=== PATIENT | female | born 1960 | race American Indian/Alaskan Native ===

== ENCOUNTER 2016-11-09 11:19 | Emergency (ER) | payer OTHER ==
[2016-11-09 11:25] VITALS: BMI 36.1
[2016-11-09] MEDS ORDERED: Sodium Chloride 0.9% 1,000 ML IV STA (11:31)
--- NOTE | 2016-11-09 11:35 | ED PDOC ---
Arrival/HPI - General Time Seen by Provider: 11/09/16 11:28 Historian: Patient - History of Present Illness Narrative History of Present Illness (Text): 11/09/16 11:23 Felicita Dorado is a 56 year old female, whose past medical history includes hypothyroidism and gastroparesis, who presents to the emergency department complaining of epigastric pain with associated nausea, vomiting, and diarrhea since midnight last night. Patient states that she also feels dizzy and cramping in her abdominal area. Patient notes that has never had these symptoms before. Patient says that she ate fish a few hours before her symptoms began. Patient denies any hematochezia, fever, cough, urinary output changes, or any other complaints at this time. PMD: Dr. Joshi Time/Duration: 24 hours Symptom Onset: Gradual Symptom Course: Worsening Severity Level: Moderate Activities at Onset: Rest Context: Home Past Medical History - Provider Review Nursing Documentation Reviewed: Yes - Infectious Disease Hx of Infectious Diseases: None - Tetanus Immunization Tetanus Immunization: Unknown - Cardiac Hx Hypertension: Yes - Neurological Hx Paralysis: No - Endocrine/Metabolic Hx Hypothyroidism: Yes - Hematological/Oncological Hx Blood Transfusions: No Hx Blood Transfusion Reaction: No - Musculoskeletal/Rheumatological Hx Musculoskeletal Disorders: No - Gastrointestinal Hx Gastroesophageal Reflux: Yes - Psychiatric Hx Substance Use: No - Surgical History Hx Section: Yes - Anesthesia Hx Anesthesia: Yes Hx Anesthesia Reactions: No - Suicidal Assessment Feels Threatened In Home Enviroment: No Family/Social History - Physician Review Nursing Documentation Reviewed: Yes Family/Social History: No Known Family HX Smoking Status: Light Smoker < 10 Cigarettes Daily Hx Alcohol Use: Yes Hx Substance Use: No Hx Substance Use Treatment: No Allergies/Home Meds Allergies/Adverse Reactions: Allergies No Known Allergies Allergy (Verified 12/08/15 13:13) Home Medications: Home Meds Medication Instructions Recorded Confirmed Levothyroxine [Synthroid] 0.112 mg PO DAILY 06/26/15 11/09/16 Dexlansoprazole [Dexilant] 60 mg PO DAILY 11/09/16 11/09/16 Review of Systems - Physician Review All systems were reviewed & negative as marked: Yes - Review of Systems Constitutional: absent: Fevers, Night Sweats Eyes: absent: Vision Changes ENT: absent: Hearing Changes Respiratory: absent: SOB, Cough Cardiovascular: absent: Chest Pain Gastrointestinal: Abdominal Pain, Diarrhea, Nausea, Vomiting. absent: Hematochezia Genitourinary Female: absent: Urine Output Changes Musculoskeletal: absent: Back Pain, Neck Pain Skin: absent: Rash Neurological: Dizziness Endocrine: absent: Diaphoresis Physical Exam Vital Signs Reviewed: Yes Vital Signs Temp Pulse Resp BP Pulse Ox 11/09/16 14:36 98.2 F 67 18 124/72 98 11/09/16 11:32 98 F 60 18 117/70 99 Temperature: Afebrile Blood Pressure: Normal Pulse: Regular Respiratory Rate: Normal Appearance: Positive for: Well-Appearing, Non-Toxic, Comfortable Pain Distress: None Mental Status: Positive for: Alert and Oriented X 3 - Systems Exam Head: Present: Atraumatic, Normocephalic Pupils: Present: PERRL Extroacular Muscles: Present: EOMI Conjunctiva: Present: Normal Mouth: Present: Moist Mucous Membranes Neck: Present: Normal Range of Motion Respiratory/Chest: Present: Clear to Auscultation, Good Air Exchange. No: Respiratory Distress, Accessory Muscle Use Cardiovascular: Present: Regular Rate and Rhythm, Normal S1, S2. No: Murmurs Abdomen: Present: Tenderness (Epigastric Tenderness) Back: Present: Normal Inspection Upper Extremity: Present: Normal Inspection. No: Cyanosis, Edema Lower Extremity: Present: Normal Inspection. No: Edema Neurological: Present: GCS=15, CN II-XII Intact, Speech Normal Skin: Present: Warm, Dry, Normal Color. No: Rashes Psychiatric: Present: Alert, Oriented x 3, Normal Insight, Normal Concentration Medical Decision Making ED Course and Treatment: EKG: Ordered, reviewed, and independently interpreted the EKG. Rate : 65 BPM Rhythm : NSR Interpretation : No ST-segment elevations or depressions, no T-wave inversions, normal intervals. Comparison : No previous EKG for comparison. 11/09/16 14:28 On reevaluation, Patient feels much better and requests to be discharged - Lab Interpretations Lab Results: 11/09/16 11:47 11/09/16 11:47 Lab Results 11/09/16 13:03: Urine Color Yellow, Urine Appearance Clear, Urine pH 7.0, Ur Specific [place] 1.015, Urine Protein Trace H, Urine Glucose (UA) Negative, Urine Ketones Negative, Urine Blood Small H, Urine Nitrate Negative, Urine Bilirubin Negative, Urine Urobilinogen 0.2, Ur Leukocyte Esterase Negative, Urine RBC 1 - 3, Urine WBC 0 - 2, Ur Epithelial Cells 0 - 2, Urine Bacteria Trace 11/09/16 11:47: WBC 8.6 D, RBC 4.42, Hgb 13.2, Hct 39.3, MCV 88.9, MCH 29.9, MCHC 33.6, RDW 14.7 H, Plt Count 334, MPV 9.7, Gran % 90.1 H, Lymph % (Auto) 6.0 L, [place] % (Auto) 3.7, Eos % (Auto) 0.1 L, Baso % (Auto) 0.1, Gran # 7.75 H, Lymph # 0.5 L, [place] # 0.3, Eos # 0.0, Baso # 0.01, Sodium 145, Potassium 3.8, Chloride 108 H, Carbon Dioxide 25, Anion Gap 16, BUN 12, Creatinine 0.5, Est GFR ( Amer) > 60, Est GFR (Non-Af Amer) > 60, Random Glucose 106, Calcium 9.6, Total Bilirubin 0.5, AST 30, ALT 26, Alkaline Phosphatase 79, Total Protein 9.0 H, Albumin 4.5, Globulin 4.6, Albumin/Globulin Ratio 1.0 L, Lipase 33 - Medication Orders Current Medication Orders: Discontinued Medications Sodium Chloride (Sodium Chloride 0.9%) 1,000 mls @ 999 mls/hr IV .Q1H1M STA Stop: 11/09/16 12:31 Last Admin: 11/09/16 11:40 Dose: 999 MLS/HR eMAR Start Stop Document 11/09/16 11:40 SRE (Rec: 11/09/16 11:50 [id number] Intravenous Solution Start Date 11/09/16 Start Time 11:40 End Date 11/09/16 End time 12:40 Total Infusion Time 60 Ketorolac Tromethamine (Toradol) 10 mg IVP STAT STA Stop: 11/09/16 11:32 Last Admin: 11/09/16 11:49 Dose: 10 MG IVP Administration Document 11/09/16 11:49 SRE (Rec: 11/09/16 11:49 [id number] Charges for Administration # of IVP Administrations 1 Ondansetron HCl (Zofran Inj) 4 mg IVP ONCE ONE Stop: 11/09/16 11:32 Last Admin: 11/09/16 11:45 Dose: 4 MG IVP Administration Document 11/09/16 11:45 SRE (Rec: 11/09/16 11:49 SRE [facility] [place]-[id number]) Charges for Administration # of IVP Administrations 1 - Scribe Statement The provider has reviewed the documentation as recorded by the Scribe Aisha Moyer Provider Scribe Attestation: All medical record entries made by the Scribe were at my direction and personally dictated by me. I have reviewed the chart and agree that the record accurately reflects my personal performance of the history, physical exam, medical decision making, and the department course for this patient. I have also personally directed, reviewed, and agree with the discharge instructions and disposition. Disposition/Present on Arrival - Present on Arrival Any Indicators Present on Arrival: No History of DVT/PE: No History of Uncontrolled Diabetes: No Urinary Catheter: No History of Decub. Ulcer: No History Surgical Site Infection Following: None - Disposition Have Diagnosis and Disposition been Completed?: Yes Diagnosis: Gastroenteritis Disposition: HOME/ ROUTINE Disposition Time: 14:28 Condition: IMPROVED Discharge Instructions (ExitCare): Gastroenteritis (ED) Additional Instructions: Please follow up with your doctor. Return to the ER for any worsening symptoms or for any other concerns. Prescriptions: Sucralfate [Carafate] 1 gm PO TID #6 dose Ondansetron ODT [Zofran ODT] 4 mg PO Q4H PRN #10 odt PRN Reason: Nausea/Vomiting Referrals: Sammy Joshi MD [Primary Care Provider] - Follow up with primary
[2016-11-09 11:36] VITALS: RESP 18
[2016-11-09 11:48] LABS: ADD MANUAL DIFF? NO
[2016-11-09 12:02] LABS: ALKALINE PHOSPHATASE 79 U/L (38-133); ALT/SGPT 26 U/L (7-56); AST/SGOT 30 U/L (15-39); BILIRUBIN,TOTAL 0.5 mg/dL (0.2-1.3); BLOOD UREA NITROGEN 12 mg/dL (7-21); CALCIUM 9.6 mg/dL (8.4-10.5); CARBON DIOXIDE 25 mmol/L (21-33); CHLORIDE 108 mmol/L (98-107); GFR AFRICAN-AMERICAN > 60; GLUCOSE,RANDOM 106 mg/dL (70-110); LIPASE 33 U/L (23-300); POTASSIUM 3.8 mmol/L (3.6-5.0); SODIUM 145 mmol/L (132-148)
[2016-11-09 12:10] LABS: BASO # 0.01 K/mm3 (0.0-2.0); BASO % 0.1 % (0.0-3.0); EOS % 0.1 % (1.5-5.0); GRAN # 7.75 (1.4-6.5); GRAN % 90.1 % (50.0-68.0); HEMATOCRIT 39.3 % (36.0-48.0); LYMPH # 0.5 (1.2-3.4); MEAN CELL VOLUME 88.9 fL (80.0-105.0); MEAN CORPUSCULAR HEMOGLOBIN 29.9 pg (25.0-35.0); MEAN CORPUSCULAR HGB CONC 33.6 g/dl (31.0-37.0); MEAN PLATELET VOLUME 9.7 fl (7.0-11.0); MONO # 0.3 (0.1-0.6); MONO % 3.7 % (1.0-6.0); PLATELET COUNT 334 10^3/uL (120.0-450.0); RED CELL DISTRIBUTION WIDTH 14.7 % (11.5-14.5); WHITE BLOOD COUNT 8.6 10^3/ul (4.5-11.0)
[2016-11-09 13:10] LABS: URINE BILIRUBIN NEGATIVE (NEGATIVE); URINE BLOOD SMALL (NEGATIVE); URINE GLUCOSE (UA) NEGATIVE (NEGATIVE); URINE KETONE NEGATIVE (NEGATIVE); URINE LEUKOCYTE ESTERASE NEGATIVE Leu/uL (NEGATIVE); URINE PROTEIN TRACE mg/dL (<30 mg/dL); URINE UROBILINOGEN 0.2 E.U./dL (<1 E.U./dL)
[2016-11-09 13:14] LABS: URINE APPEARANCE CLEAR (CLEAR); URINE COLOR YELLOW (YELLOW)
[2016-11-09 13:24] LABS: URINE BACTERIA TRACE (NEG); URINE EPITHELIAL CELLS 0 - 2 /hpf (0-5); URINE WBC 0 - 2 /hpf (0-6)
[2016-11-09 14:37] VITALS: BP 124/72; PULSE 67; TEMP 98.2; O2SAT 98
--- NOTE | 2016-11-10 09:36 | CARD ---
APPROVED REPORT EKG Measurement Heart [id number] <Conclusion> Normal sinus rhythm Artifact 2,3,F PWNL No change
== END 2016-11-09 14:38 | disposition home or self-care (01) ==
LOC: ED 11:19
DX: K52.9 Noninfective gastroenteritis and colitis, unspecified (principal)
CPT/HCPCS: 80053; 81001; 83690; 85025; 93005; 96361; 96374; 96375; 99284; J1885; J2405; J7040

== ENCOUNTER 2017-02-16 13:06 | Emergency (ER) | payer OTHER ==
[2017-02-16 13:06] VITALS: BMI 36.1
[2017-02-16 13:18] VITALS: RESP 18; TEMP 98.3
[2017-02-16] MEDS ORDERED: Sodium Chloride 0.9% 1,000 ML IV STA (13:31)
--- NOTE | 2017-02-16 13:34 | ED PDOC ---
Arrival/HPI - General Chief Complaint: Dizziness/Lightheaded Time Seen by Provider: 02/16/17 13:21 Historian: Patient - History of Present Illness Narrative History of Present Illness (Text): 02/16/17 13:35 A 56 year old female, whose past medical history includes vertigo, brought in by EMS complaining of 3-4 days history of dizziness. Patient feels that dizziness is worse with movement or turning head. Patient reports feeling congested over the past several days. Reports nausea associated with dizziness but denies any other complaints at this time. Denies headache. Denies pain with eye movements. Denies facial swelling. No chest pain with exertion. She reports some epigastric pain when she burps. Denies calf pain or swelling. PMD: Dr. Josih Time/Duration: < week Symptom Onset: Sudden Symptom Course: Unchanged Activities at Onset: Rest Context: Home Past Medical History - Provider Review Nursing Documentation Reviewed: Yes - Infectious Disease Hx of Infectious Diseases: None - Tetanus Immunization Tetanus Immunization: Unknown - Reproductive Menopause: Yes - Cardiac Hx Hypertension: Yes - Neurological Hx Dizziness: Yes - Endocrine/Metabolic Hx Hypothyroidism: Yes - Hematological/Oncological Hx Blood Transfusions: No Hx Blood Transfusion Reaction: No - Musculoskeletal/Rheumatological Hx Musculoskeletal Disorders: No - Gastrointestinal Hx Gastroesophageal Reflux: Yes - Psychiatric Hx Emotional Abuse: No Hx Physical Abuse: No Hx Substance Use: No - Surgical History Hx Section: Yes - Anesthesia Hx Anesthesia: Yes Hx Anesthesia Reactions: No Hx Malignant Hyperthermia: No - Suicidal Assessment Feels Threatened In Home Enviroment: No Family/Social History - Physician Review Nursing Documentation Reviewed: Yes Family/Social History: No Known Family HX Smoking Status: Light Smoker < 10 Cigarettes Daily Hx Alcohol Use: Yes Frequency of alcohol use: Socially Hx Substance Use: No Hx Substance Use Treatment: No Allergies/Home Meds Allergies/Adverse Reactions: Allergies No Known Allergies Allergy (Verified 02/16/17 13:22) Home Medications: Home Meds Medication Instructions Recorded Confirmed Levothyroxine [Synthroid] 0.112 mg PO DAILY 06/26/15 02/16/17 Dexlansoprazole [Dexilant] 60 mg PO DAILY 11/09/16 02/16/17 Review of Systems - Review of Systems Constitutional: absent: Fatigue, Fevers Eyes: absent: Vision Changes, Photophobia, Eye Pain ENT: Sinus Congestion. absent: Hearing Changes, Tinnitus, TMJ Pain, Voice Changes, Sore Throat Respiratory: absent: SOB, Cough, Sputum, Wheezing Cardiovascular: absent: Chest Pain, Palpitations, Edema, Calf Pain, HORN Gastrointestinal: Nausea. absent: Abdominal Pain Genitourinary Female: absent: Dysuria, Frequency Musculoskeletal: absent: Back Pain Skin: absent: Rash Neurological: Dizziness. absent: Headache, Focal Weakness, Gait Changes, Speech Changes, Facial Droop Endocrine: Other (denies heat or cold intolerance). absent: Diaphoresis, Polyuria, Polydipsia Hemo/Lymphatic: absent: Adenopathy Psychiatric: absent: Anxiety Physical Exam - Physical Exam Narrative Physical Exam (Text): 02/16/17 13:35 Head: Atraumatic. Normocephalic. Eyes: PERRL. EOMI. Conjunctivae are not pale. No significant exopthalmos. No pain with eye movements. ENT: Mucous membranes are moist and intact. Oropharynx is clear and symmetric. Nasal congestion noted. No facial edema. No sinus tenderness to percussions. No facial droop. No drooling. No purulent nasal discharge. TMs full , no erythema or drainage. No mastoid tenderness. Neck: Supple. Full ROM. No JVD. No lymphadenopathy. Cardiovascular: Bradycardic. Systolic murmur. Pulmonary/Chest: No evidence of respiratory distress. Clear to auscultation bilaterally. No wheezing, rales or rhonchi. Abdominal: Soft and non-distended. Mild epigastric pain. No rebound, guarding , or rigidity. No organomegaly. Good bowel sounds. Back: No CVA tenderness. Extremities: No edema. No cyanosis. No clubbing. Full range of motion in all extremities. Skin: Skin is warm and dry. No petechiae. No purpura. Neurological: Alert, awake, and oriented to person, place, time, and situation. Normal speech. Dizziness reproduced by turning head, improved when stays still. No slurred speech. Normal finger to nose. Cranial nerves intact. Motor strength intact in all four extremities. Sensory intact. No meningeal signs. Normal rapid alternating movements. Psychiatric: Good eye contact. Normal interaction, affect, and behavior. Feels slightly anxious. Vital Signs Reviewed: Yes Vital Signs Temp Pulse Resp BP Pulse Ox 02/16/17 17:02 62 18 140/72 99 07/23/17 16:32 64 18 143/69 99 02/16/17 15:07 60 18 145/72 99 02/16/17 13:18 98.3 F 52 L 18 148/70 100 02/16/17 13:16 98.5 F 56 L 19 140/70 100 Temperature: Afebrile Blood Pressure: Normal Pulse: Bradycardic Respiratory Rate: Normal Appearance: Positive for: Well-Appearing, Non-Toxic, Uncomfortable Pain Distress: Mild Mental Status: Positive for: Alert and Oriented X 3 Medical Decision Making ED Course and Treatment: 02/16/17 13:31 Impression: A 56 year old female with dizziness and nausea. Differential Diagnosis included but are not limited to: vertigo vs. sinusitis vs. gerd Plan: -- EKG -- chest xray -- labs -- Pepcid, IV fluids, Zofran -- Urinalysis -- Reassess and disposition Prior Visits: Notes and results from previous visits were reviewed. Patient was last seen in the emergency department on 11/09/16 for evaluation of epigastric pain, nausea, vomiting and diarrhea. Progress Notes: Patient on examination is neurolgoically intact. Not hypotensive. Not orthostatic. No associated chest pain or sob. Her symptoms are reproduced with movements and turning head. She reports increased nasal congestion recently. As symptoms worse with turning than fatigues, without associated fever or focal weakness, I suspect vertigo possibly triggered by URI symptoms. Given persistence of symptoms despite taking Meclizine, Zofran po PRIOR to arrival, CT head obtained. Sinsuitis noted although no acute intracranial abnormalities noted. On re-exam, symptoms and dizziness resolved after IV zofran, pepcid, meclizine. She reports sensation of belching with epigastric burning that is associated with belching. Denies chest pain or sob or cough. No hypoxia or leg pain or swelling. She has prior hx of GERD and reflux. On re-exam, no abdominal pain or vomiting. She notes prior hx of thryoid disease. On current exam no sign of endocrine emergency although she recently saw her application support administrator and was advised to restart Syntroid, I have advised close follow-up of this as she has expressed feeling "jittery" at times over the past month. Currently on re-exam she has steady gait, no focal neuro deficits, and resolution of dizziness and nausea. She has had hx of sinusitis and given increased congestion will be placed on Augmentin and advised ENT follow-up. CXR reading reviewed by radiologist. Patient with NO COUGH, no sob, no wheezing , no hypoxia, no fevers. Current exam not consistent with pneumonia, although I have advised close monitoring of her symptoms. On re-exam, treatment plan reviewed and patient is neurologically intact. Case reviewed with Dr. Alvarado, covering for PMD, instructions given to patient and understood. 02/16/17 17:12 02/16/17 17:17 Patient noted prior history of bradycardia. No orthostasis or symptomatic bradycardia noted. - Lab Interpretations Lab Results: 02/16/17 13:47 02/16/17 13:47 Lab Results 02/16/17 14:35: Urine Color Yellow, Urine Appearance Clear, Urine pH 7.0, Ur Specific [place] 1.010, Urine Protein Negative, Urine Glucose (UA) Negative, Urine Ketones Negative, Urine Blood Small H, Urine Nitrate Negative, Urine Bilirubin Negative, Urine Urobilinogen 0.2, Ur Leukocyte Esterase Negative, Urine RBC 1 - 3, Urine WBC 1 - 3, Ur Epithelial Cells 1 - 3, Urine Bacteria Few 02/16/17 13:47: Sodium 140, Potassium 4.1, Chloride 103, Carbon Dioxide 27, Anion Gap 14, BUN 13, Creatinine 0.5, Est GFR ( Amer) > 60, Est GFR (Non- Af Amer) > 60, Random Glucose 100, Calcium 9.2, Total Bilirubin 0.4, AST 26, ALT 21, Alkaline Phosphatase 89, Lactate Dehydrogenase 458, Total Creatine Kinase 106, Troponin I < 0.01, Total Protein 8.1, Albumin 4.2, Globulin 3.9, Albumin/Globulin Ratio 1.1 02/16/17 13:47: PT 10.5, INR 0.97, APTT 27.1 02/16/17 13:47: WBC 5.2 D, RBC 4.14, Hgb 12.6, Hct 37.9, MCV 91.5, MCH 30.4, MCHC 33.2, RDW 16.1 H, Plt Count 303, MPV 9.3, Gran % 63.8, Lymph % (Auto) 28.6 , [place] % (Auto) 6.2 H, Eos % (Auto) 1.2 L, Baso % (Auto) 0.2, Gran # 3.31, Lymph # 1.5, [place] # 0.3, Eos # 0.1, Baso # 0.01 I have reviewed the lab results: Yes - RAD Interpretation Radiology Orders: 02/16/17 13:30 CHEST PORTABLE [RAD] Stat 02/16/17 14:25 HEAD W/O CONTRAST [CT] Stat - EKG Interpretation EKG Interpretation (Text): EKG at 13:18 sinus bradycardia rate of [address] elevations Interpreted by ED Physician: Yes Type: 12 lead EKG - Medication Orders Current Medication Orders: Discontinued Medications Famotidine (Pepcid) 20 mg IVP STAT STA Stop: 02/16/17 13:32 Last Admin: 02/16/17 14:04 Dose: 20 mg Sodium Chloride (Sodium Chloride 0.9%) 1,000 mls @ 1,000 mls/hr IV .Q1H STA Stop: 02/16/17 14:30 Last Admin: 02/16/17 14:04 Dose: 1,000 mls/hr Meclizine HCl (Antivert) 25 mg PO ONCE ONE Stop: 02/16/17 14:26 Last Admin: 02/16/17 15:00 Dose: 25 mg Ondansetron HCl (Zofran Inj) 4 mg IVP ONCE ONE Stop: 02/16/17 13:32 Last Admin: 02/16/17 14:04 Dose: 4 mg - Scribe Statement The provider has reviewed the documentation as recorded by the Juan Yadav Provider Scribe Attestation: All medical record entries made by the Juan were at my direction and personally dictated by me. I have reviewed the chart and agree that the record accurately reflects my personal performance of the history, physical exam, medical decision making, and the department course for this patient. I have also personally directed, reviewed, and agree with the discharge instructions and disposition. Disposition/Present on Arrival - Present on Arrival Any Indicators Present on Arrival: No History of DVT/PE: No History of Uncontrolled Diabetes: No Urinary Catheter: No History of Decub. Ulcer: No History Surgical Site Infection Following: None - Disposition Have Diagnosis and Disposition been Completed?: Yes Diagnosis: Sinusitis, Vertigo Disposition: HOME/ ROUTINE Disposition Time: 16:40 Patient Plan: Discharge Condition: GOOD Discharge Instructions (ExitCare): Sinusitis (ED), Vertigo (ED), Gastroesophageal Reflux Disease (ED) Additional Instructions: For any facial swelling, any headaches, any cough or shortness of breath, any palpitations, any heat or cold intolerance, any diarrhea, any abdominal pain, any chest pain especially with exertion, any leg pain or swelling, any numbness or weakness, get rechecked. Follow-up with your ENT doctor in 1-2 days. Follow-up with your application support administrator as directed. Follow-up with you GI physician as scheduled. Prescriptions: Amoxicillin/Clavulanate [Augmentin 875 MG-125 MG] 1 tab PO BID #20 tab Meclizine [Meclizine*] 25 mg PO Q6 PRN #12 tab PRN Reason: dizzy Famotidine [Pepcid] 20 mg PO DAILY #5 tab Referrals: David Andrade DO [Staff Provider] - Follow up with primary Sammy Joshi MD [Staff Provider] - Follow up with primary Trice Montesinos MD [Medical Doctor] - Follow up with primary
[2017-02-16 13:55] LABS: BASO # 0.01 K/mm3 (0.0-2.0); BASO % 0.2 % (0.0-3.0); EOS # 0.1 (0.0-0.7); EOS % 1.2 % (1.5-5.0); GRAN # 3.31 (1.4-6.5); GRAN % 63.8 % (50.0-68.0); HEMOGLOBIN 12.6 gm/dL (12.0-16.0); LYMPH # 1.5 (1.2-3.4); LYMPH % 28.6 % (22.0-35.0); MEAN CELL VOLUME 91.5 fL (80.0-105.0); MEAN CORPUSCULAR HEMOGLOBIN 30.4 pg (25.0-35.0); MEAN CORPUSCULAR HGB CONC 33.2 g/dl (31.0-37.0); MEAN PLATELET VOLUME 9.3 fl (7.0-11.0); MONO # 0.3 (0.1-0.6); MONO % 6.2 % (1.0-6.0); PLATELET COUNT 303 10^3/uL (120.0-450.0); RBC 4.14 10^6/uL (3.5-6.1); RED CELL DISTRIBUTION WIDTH 16.1 % (11.5-14.5); WHITE BLOOD COUNT 5.2 10^3/ul (4.5-11.0)
[2017-02-16 14:00] LABS: ALB/GLOB RATIO 1.1 (1.1-1.8); ALBUMIN 4.2 g/dL (3.0-4.8); ALT/SGPT 21 U/L (7-56); AST/SGOT 26 U/L (15-39); BLOOD UREA NITROGEN 13 mg/dL (7-21); CALCIUM 9.2 mg/dL (8.4-10.5); GFR AFRICAN-AMERICAN > 60; GFR NON-AFRICAN AMERICAN > 60
[2017-02-16 14:03] LABS: INR 0.97 (0.93-1.08); PARTIAL THROMBOPLASTIN TIME 27.1 Seconds (23.7-30.8); PROTHROMBIN TIME 10.5 Seconds (9.9-11.8)
[2017-02-16 14:12] LABS: TROPONIN I < 0.01 ng/mL
[2017-02-16 15:08] VITALS: O2SAT 99
[2017-02-16 15:21] LABS: URINE BILIRUBIN NEGATIVE (NEGATIVE); URINE BLOOD SMALL (NEGATIVE); URINE GLUCOSE (UA) NEGATIVE (NEGATIVE); URINE LEUKOCYTE ESTERASE NEGATIVE Leu/uL (NEGATIVE); URINE NITRATE NEGATIVE (NEGATIVE); URINE PROTEIN NEGATIVE mg/dL (<30 mg/dL); URINE UROBILINOGEN 0.2 E.U./dL (<1 E.U./dL)
[2017-02-16 15:28] LABS: URINE APPEARANCE CLEAR (CLEAR); URINE COLOR YELLOW (YELLOW)
[2017-02-16 15:35] LABS: URINE BACTERIA FEW (NEG)
--- NOTE | 2017-02-16 16:06 | CT ---
PROCEDURE: CT HEAD WITHOUT CONTRAST. HISTORY: dizziness COMPARISON: None available. TECHNIQUE: Axial computed tomography images were obtained through the head/brain without intravenous contrast. Radiation dose: Total exam DLP = 774.23 mGy-cm. This CT exam was performed using one or more of the following dose reduction techniques: Automated exposure control, adjustment of the mA and/or kV according to patient size, and/or use of iterative reconstruction technique. FINDINGS: HEMORRHAGE: No intracranial hemorrhage. BRAIN: No mass effect or edema. No atrophy. No chronic white matter ischemic change. VENTRICLES: Unremarkable. No hydrocephalus. CALVARIUM: Unremarkable. PARANASAL SINUSES: Minimal chronic sphenoid sinusitis. MASTOID AIR CELLS: Unremarkable as visualized. No inflammatory changes. OTHER FINDINGS: None. IMPRESSION: No intracranial mass, hemorrhage or evidence of acute infarct. Minimal chronic sphenoid sinusitis.
--- NOTE | 2017-02-16 16:25 | RAD ---
HISTORY: weakness COMPARISON: No prior. FINDINGS: LUNGS: Ill-defined opacity at right base may be artifact due to superimposed breast tissue. Cannot exclude pneumonia. PLEURA: No significant pleural effusion identified, no pneumothorax apparent. CARDIOVASCULAR: Normal. OSSEOUS STRUCTURES: No significant abnormalities. VISUALIZED UPPER ABDOMEN: Normal. OTHER FINDINGS: None. IMPRESSION: Questionable infiltrate at right base versus artifact as above. Follow-up advised
[2017-02-16 17:03] VITALS: BP 140/72; PULSE 62
--- NOTE | 2017-02-17 21:18 | CARD ---
APPROVED REPORT EKG Measurement Heart [id number] <Conclusion> Sinus bradycardia Cannot rule out Anterior infarct, age undetermined Abnormal ECG
== END 2017-02-16 17:06 | disposition home or self-care (01) ==
LOC: ED 13:06
DX: R42 Dizziness and giddiness (principal); J32.9 Chronic sinusitis, unspecified
CPT/HCPCS: 70450; 71010; 80053; 81001; 82550; 83615; 84484; 85025; 85610; 85730; 93005; 96374; 96375; 99285; J2405; J7040